=== PATIENT | female | born 1990 | race Asian ===

== ENCOUNTER 2019-10-17 20:33 | Emergency (ER) | payer BC ==
[~2019-10-17] VITALS: Ht 154.9 cm; Wt 40.0 kg
[2019-10-17 20:48] VITALS: BP 112/69
[2019-10-17 21:03] LABS: COLLECTION METHOD CLEAN CATCH
[2019-10-17 21:29] LABS: PH 6 (5-8); URINE APPEARANCE Cloudy; URINE BACTERIA None Seen /hpf; URINE BILIRUBIN Negative (NEGATIVE); URINE BLOOD 3+ (NEGATIVE); URINE COLOR Amber; URINE GLUCOSE 3+ (NEGATIVE); URINE KETONE Negative (NEGATIVE); URINE LEUKOCYTE ESTERASE 2+ (NEGATIVE); URINE NITRATE Negative (NEGATIVE); URINE PROTEIN(semi-quant) 2+ (NEGATIVE); URINE RBC >50 /hpf; URINE UROBILINOGEN Negative (NEGATIVE)
[2019-10-17] MEDS ORDERED: CEFTIN 250250 MG/TAB PO (22:41)
[2019-10-17 22:45] VITALS: PULSE 65; TEMP 98.4
== END 2019-10-17 22:50 | disposition home or self-care (01) ==
LOC: COL.ER 20:33
PROVIDERS: Emergency Medicine
DX: N39.0 Urinary tract infection, site not specified (principal)